=== PATIENT | female | born 1985 | race Caucasian/White ===

== ENCOUNTER → 2017-02-20 | Outpatient (CLI) | payer BC ==
--- NOTE | 2017-02-20 15:17 | KCIC ---
Hysterosalpingogram HISTORY: Endometriosis, infertility TECHNIQUE: Patient was informed of the risks to include pain, infection, bleeding, allergic reaction to contrast. All questions were answered. Patient signed a consent form for hysterosalpingogram. Patient was placed in a supine position on the fluoroscopy table. External skin site was cleansed with Betadine solution. Speculum was inserted. External cervical os was cleansed with Betadine solution. Despite multiple attempts, catheter could not be advanced through the cervical os which appears narrowed. Speculum was removed. No contrast was injected. No images were obtained. Fluoroscopy time: None, no fluoroscopic images IMPRESSION: 1. Catheter could not be advanced through the cervical os which appears narrowed, no contrast injected. Electronically signed by: Vivek Souza MD (02/20/2017 3:14 PM) [id number]
== END | disposition home or self-care (01) ==
LOC: KCIC 09:41
PROVIDERS: ATTEND Obstetrics & Gynecology
DX: N97.9 Female infertility, unspecified (principal); N80.9 Endometriosis, unspecified
CPT/HCPCS: 74400

== ENCOUNTER → 2017-02-23 | Outpatient (CLI) | payer BC ==
[~2017-02-23] MED LIST: IOHEXOL 180 MG/ML 10 ML VIAL. INT UTERIN ONE
--- NOTE | 2017-02-23 13:33 | KCIC ---
Hysterosalpingogram HISTORY: Infertility, endometriosis TECHNIQUE: Patient had cervical canal dilatation prior to this procedure as stenotic on recently attempted hysterosalpingogram. Patient was informed of the risks to include pain, infection, bleeding, and allergic reaction to contrast. All questions were answered. Patient signed a written consent form for hysterosalpingogram. Patient was placed in a supine position on the fluoroscopy table. External skin site was cleansed with Betadine solution. Speculum was inserted. External cervical os was cleansed with Betadine solution. Hysterosalpingogram catheter was advanced into the cervix, secured by balloon inflation. Fluoroscopic imaging was performed during injection of contrast, approximately 9 cc of Omnipaque 180 injected. Balloon was deflated and catheter removed. Speculum was removed. There were no immediate complications. Patient was informed to notify physician if development of fever or chills or progressive bleeding. FINDINGS: Uterus is deviated to the right. Both fallopian tubes are normal in caliber and are patent. There is mild contour irregularity of the anterolateral aspect of the left uterus, possibly underlying synechiae. IMPRESSION: 1. Both fallopian tubes are patent. Mild contour irregularity of the anterior lateral aspect of the left uterus may be due to underlying synechiae. Electronically signed by: Vivek Souza MD (02/23/2017 1:29 PM) [id number]
== END | disposition home or self-care (01) ==
LOC: KCIC 12:05
PROVIDERS: ATTEND Obstetrics & Gynecology
DX: N80.9 Endometriosis, unspecified (principal); N97.9 Female infertility, unspecified
CPT/HCPCS: 74400